=== PATIENT | male | born 1940 | race Caucasian/White ===

== ENCOUNTER 2019-02-09 10:17 | Observation (INO) | payer OTHER ==
[~2019-02-09] VITALS: Ht 182.9 cm; Wt 79.8 kg
[2019-02-09] VITALS (10 sets, daily range): BP systolic 110–176; BP diastolic 62–89
[~2019-02-09 10:17] MED LIST: ASPIRIN81 M2 PO; BRILINTA90 MG PO; CALCIUM + VIT1 EACH PO; COZAAR 50 MG TA50 M2 PO; CRESTOR20 MG PO; FISH OIL 1,001000 M2 PO; LAMICTAL100 MG PO; PAXIL10 MG PO; PLAVIX 75 MG TA75 M1 PO; TENORMIN50 MG PO; UNICOMPLEX M TA1 TA1 PO; XANAX 0.25 MG0.25 MG PO
[2019-02-09 11:10] LABS: HEMATOCRIT 38.2 % (42.0-52.0); HEMOGLOBIN 12.9 gm/dL (14.0-18.0); MCH 31.8 pg (26.0-34.0); MCHC 33.8 g/dL (28.0-37.0); MCV 94.1 fL (80.0-100.0); MPV 8.6 fl. (7.2-11.1); RBC 4.06 mil/uL (4.50-6.00); RDW-CV 13.4 % (10.5-14.5); WBC 6.3 thou/uL (4.0-11.0)
[2019-02-09 11:20] LABS: ANION GAP 2 mmol/L (7-16); APTT 23.7 Seconds (25.0-31.3); BUN 20 mg/dL (7-18); CHLORIDE 102 mmol/L (98-107); CO2 35 mmol/L (21-32); GLUCOSE 144 mg/dL (70-99); POTASSIUM 5.6 mmol/L (3.5-5.1); PROTIME 10.4 Seconds (9.20-11.50); SODIUM 139 mmol/L (136-145)
[2019-02-09 11:26] LABS: ALBUMIN 3.4 g/dL (3.4-5.0); ALKALINE PHOSPHATASE 84 U/L (46-116); CHOLESTEROL 126 mg/dL (<200); HDL CHOLESTEROL 54 mg/dL (>40); LDL CHOLESTEROL 51 mg/dL (<100); SGOT 45 U/L (15-37); SGPT 43 U/L (30-65); TC:HDL 2.3 Ratio (Not establshd); TOTAL BILIRUBIN 0.5 mg/dL (<0.1-1.0); TOTAL PROTEIN 6.9 g/dL (6.4-8.2); TRIGLYCERIDE 109 mg/dL (<150); VLDL 22 mg/dL (<40)
[2019-02-09] MEDS ORDERED: PLAVIX 75 MG TA75 MG PO (11:28)
[2019-02-09] MEDS ORDERED: LEXAPRO 10 MG T10 M2 PO (11:29)
[2019-02-09 11:58] LABS: SERUM ASSESSMENT Clear
--- NOTE | 2019-02-09 14:38 | EKG ---
[place] [address] ELECTROCARDIOGRAM REPORT Name: EMERYVINH Yashira NARANJO Room: [address] M.R.#: [id number] Admission: 02/09/19 Attend Phys: Jarrett Silva MD, Discharge: Date of : 36 Report #: [id number] THIS REPORT FOR: //name// [facility] Test Date: 2019-02-09 Test Time: 11:02:45 Pat Name: VINH LAND Department: Room: [facility] Gender: M Custodian: : 1940 Requested By: Jarrett Silva Order Number: [id number] Abigail MD: Jarrett Silva Measurements Intervals [place] Rate: 52 P: 23 ND: 233 QRS: -3 QRSD: 92 T: 24 QT: 433 QTc: 403 Interpretive Statements Sinus rhythm Prolonged [place] interval Compared to ECG 03/29/2017 01:08:58 T-wave abnormality no longer present Electronically Signed On 02-09-2019 14:38:25 CDT by Jarrett Silva [email or web address] <ELECTRONICALLY SIGNED> By: Jarrett Silva MD, [facility] 02/09/19 1438 01 01 Jarrett Silva MD, FAC /EPI
--- NOTE | 2019-02-09 14:40 | EKG ---
[place] [address] ELECTROCARDIOGRAM REPORT Name: VINH LAND JR Room: [address] M.R.#: [id number] Admission: 02/09/19 Attend Phys: Jarrett Silva MD, Discharge: Date of : 36 Report #: [id number] THIS REPORT FOR: //name// [facility] Test Date: 2019-02-09 Test Time: 14:15:34 Pat Name: VINH LAND Department: Room: [facility] Gender: M Petal Cutter: : 1940 Requested By: Jarrett Silva Order Number: [id number] Abigail MD: Jarrett Silva Measurements Intervals [place] Rate: 51 P: 29 [place]: 238 QRS: 0 QRSD: 93 T: 31 QT: 451 QTc: 416 Interpretive Statements Sinus rhythm Prolonged [place] interval Compared to ECG 03/29/2017 01:08:58 T-wave abnormality no longer present Electronically Signed On 02-09-2019 14:40:29 CDT by Jarrett Silva [email or web address] <ELECTRONICALLY SIGNED> By: Jarrett Silva MD, [facility] 02/09/19 1440 1415 1415 Jarrett Silva MD, FACC /EPI
[2019-02-09] MEDS ORDERED: ZETIA10 MG PO (18:53)
[2019-02-10] VITALS: BP 141/62
[2019-02-10 04:00] VITALS: BP 165/75
[2019-02-10 05:08] LABS: HEMATOCRIT 35.4 % (42.0-52.0); HEMOGLOBIN 12.1 gm/dL (14.0-18.0); MCH 31.9 pg (26.0-34.0); MCHC 34.1 g/dL (28.0-37.0); MCV 93.7 fL (80.0-100.0); MPV 8.1 fl. (7.2-11.1); RBC 3.78 mil/uL (4.50-6.00); RDW-CV 13.6 % (10.5-14.5); WBC 6.5 thou/uL (4.0-11.0)
[2019-02-10 06:13] LABS: ANION GAP 7 mmol/L (7-16); CHLORIDE 106 mmol/L (98-107); CO2 29 mmol/L (21-32); SODIUM 142 mmol/L (136-145)
[2019-02-10 06:57] LABS: ALBUMIN 3.2 g/dL (3.4-5.0); ALKALINE PHOSPHATASE 79 U/L (46-116); BUN 20 mg/dL (7-18); CALCIUM 8.5 mg/dL (8.5-10.1); CREATININE 1.1 mg/dL (0.6-1.3); GLUCOSE 144 mg/dL (70-99); POTASSIUM 4.3 mmol/L (3.5-5.1); SGOT 26 U/L (15-37); SGPT 40 U/L (30-65); TOTAL BILIRUBIN 0.3 mg/dL (<0.1-1.0); TOTAL PROTEIN 6.2 g/dL (6.4-8.2); TROPONIN-I LEVEL <0.06 ng/mL (<0.06)
--- NOTE | 2019-02-10 07:48 | NUR ---
PT CARE ASSUMED AT 1930. SAT MAINTAINED IN RA. ALERT AND ORIENTED X4. CALL LIGHT WITHIN REACH AND BED IN LOW POSITION. C/O CHEST PAIN, EKG DONE, MEDICTAION GIVEN PER EMAR AND PHYSICIAN NOTIFIED. HOURLY ROUNDING DONE FOR PT SAFETY.
[2019-02-10 08:00] VITALS: BP 167/76
[2019-02-10 08:56] VITALS: BP 167/76
--- NOTE | 2019-02-10 10:41 | CARD ---
[address] [address] CARDIAC CATH REPORT Name: VINH LAND JR Room: [address] Joyce#: [id number] Admission: 02/09/19 Attend Phys: Jarrett Silva MD, Discharge: Date of : 36 Report #: [id number] THIS REPORT FOR: //name// ADDENDUM APPROVED REPORT Study performed: 02/09/2019 11:57:29 Patient Details Patient Status: Out-Patient Room #: Event Personnel Dr. Silva, Food Prep Worker; Radha Adam RN rolling mill plugger; NABEEL Mccollum scrub; Naty Hernandez RTR monitor Procedures Performed Left heart catheterization left selective coronary artery with percutaneous coronary intervention to the first posterolateral branch of the circumflex. Right femoral artery access. Indication Unstable angina Risk Factors Hypercholesterolemia Previous Procedures/Diagnoses Previous PCI Admission/Lab Medications/Medications given during procedure Angiomax bolus12 mg and infusion 28.53 ml/hr. Aspirin 162 mg PO. Plavix 300 mg PO. Procedure Narrative The patient was brought electively to the Cardiac Catheterization Laboratory and was prepped and draped in a sterile manner. The right femoral was infiltrated with 2% Lidocaine subcutaneous anesthesia. A 6 Mozambican sheath was inserted into the right femoral artery. Coronary angiography was performed using coronary diagnostic catheters. The right coronary system was accessed and visualized with a Diagnostic 6f JL4 catheter. The left coronary system was accessed and visualized with a Diagnostic 6f JR4 catheter. The left ventricle was accessed and visualized with a Diagnostic catheter. Left ventricular/Aortic Valve gradient assessed via catheter pullback. Left ventriculogram was performed in SOTO projection. Pre-demployment femoral angiogram was performed . Closure device was deployed with a 6 [place] [address] CARDIAC CATH REPORT Name: VINH LAND JR Room: [address]#: [id number] Admission: 02/09/19 Attend Phys: Jarrett Silva MD, Discharge: Date of : 38 Report #: [id number] There was no hematoma. Intraoperative Conscious Sedation Sedation start time: 12:29 Case end Time: 13:15 Fentanyl 25.0 mcg Versed 2.0 mg Fluoro Time: 7.3 minutes Dose: DAP 24832 cGycm2 1482 mGy Contrast Type and Amount: 270 ml visipaque Diagnostic Cath Left Main 0% narrowing LAD 30 percent proximal and mid LAD narrowings with widely patent mid LAD stent Circumflex Nondominant circumflex with 80% stenosis of the proximal portion of the first posterolateral branch of the distal circumflex Right Coronary Large dominant vessel with 40% mid vessel and 30% distal narrowing Left Ventriculography The left ventricle is normal in size with normal contractility. The left ventricular ejection fraction is estimated to be 65%. Left ventricular wall motion abnormalities are not present. There is no mitral insufficiency. Hemodynamics The aortic pressure is 150/70 mmHg with a mean of 86 mmHg. The left ventricular end diastolic pressure is 10 mmHg. There was no gradient across the aortic valve upon pullback. PCI Technique Lesion Anticoagulation was achieved with Angiomax. Patient was preloaded with Angiomax 12 mg IV bolus. Percutaneous coronary intervention was performed on the first posterolateral branch of the circumflex. The lesion stenosis prior to intervention was 80% with JEREMIE 3 flow. A 6 Mozambican XB LAD 3.5 Guide Catheter was used to engage the left ostium. A 014 PWflex 180cm Interventional Guidewire was used to cross the lesion. STENT DEPLOYMENT A drug-eluting stent 2.0 x 8 mm [place] was inserted and inflated up to 10atm for 14seconds. Additional Inflation: 12atm for 7seconds. Final angiography reveals 0 % stenosis with JEREMIE 3 [place] [address] CARDIAC CATH REPORT Name: VINH LAND JR Room: [address]#: [id number] Admission: 02/09/19 Attend Phys: Jarrett Silva MD, Discharge: Date of : 38 Report #: [id number] flow. Conclusion #1 Coronary artery disease characterized by the following: A 30% proximal and mid LAD narrowing with widely patent mid LAD stent B 80% stenosis of the proximal portion of the first posterolateral branch of the circumflex C dominant right coronary artery with 40% mid and 30% distal narrowing #2 normal left ventricular systolic function, estimate ejection fraction 65% #3 normal left-sided hemodynamics study #4 successful percutaneous coronary intervention with deployment of drug-eluting stent at site of 80% stenosis in the first posterolateral branch of the circumflex with 0% residual narrowing Recommendations Cardiac Risk Reduction Program Aggressive Medical Therapy Medications Administered Aspirin (any) Clopidogrel Diagnostic Cath Approved by: Jarrett Silva MD Date/Time: 02/09/2019 15:43:59 <ELECTRONICALLY SIGNED> By: Jarrett Silva MD, [facility] 02/10/19 1041 1041 1041Jarrett Silva MD, FACC /INF
[2019-02-10] MEDS ORDERED: NITROSTAT0.4 M1 SUBLING (10:42)
[2019-02-10] MEDS ORDERED: IMDUR 30 MG TAB30 M1 PO (10:43)
--- NOTE | 2019-02-10 11:56 | D ---
[address] [address] DISCHARGE SUMMARY Name: EMERYVINH Ac Room: [address] [place] Cook#: [id number] Admission: 02/09/19 Attend Phys: Jarrett Silva MD, Discharge: 02/10/19 Date of : 36 Report #: [id number] THIS REPORT FOR: //name// CC: Jarrett Marshall DATE OF SERVICE: 02/10/2019 FINAL DISCHARGE DIAGNOSES: 1. Unstable angina. 2. Coronary artery disease. 3. Hyperlipidemia. 4. Hypertension. 5. Frequent premature ventricular contractions. 6. Status post percutaneous coronary intervention of the first posterolateral branch of the circumflex. PROCEDURES: 02/09/2019 ? left heart catheterization, left ventriculography, selective coronary arteriography and percutaneous coronary intervention with deployment of a single drug-eluting stent in the first posterolateral branch of the circumflex. HOSPITAL COURSE: The patient is a very pleasant and active 78-year-old male with complex coronary artery disease, status post multiple prior percutaneous coronary interventions. In the last several weeks, he has noted occasional episodes of chest discomfort and increased dyspnea on exertion. These occur particularly when he is playing handball and doing vigorous activities. He has also been noted to have frequent ectopy with periods of bigeminy during his cardiac rehabilitation sessions. In the context of known risk factors of hyperlipidemia and hypertension and the aforementioned clinical syndrome, I recommended repeat cardiac catheterization, which was undertaken on 02/09/2019. That revealed a 30% tandem proximal and mid LAD stenosis with a widely patent mid LAD stent, 80%-90% stenosis of the first posterolateral branch of the nondominant circumflex, and 50% mid right coronary narrowing with patent right coronary stents. Given this data, I placed one 2.0 x 8 mm Rj drug-eluting stent in the first posterolateral branch of the circumflex with 0% residual narrowing and JEREMIE 3 flow of the distal vessel. The patient did well post-procedurally and there was good hemostasis at the right femoral site of catheterization. I did note vasospasm during the procedure and nitrates were added to his longstanding regimen. He was continued [place] [address] DISCHARGE SUMMARY Name: VINH LAND JR Room: [address]#: [id number] Admission: 02/09/19 Attend Phys: Jarrett Silva MD, Discharge: 02/10/19 Date of : 38 Report #: [id number] The patient ambulated in the hallways without difficulty and there was good hemostasis at the right femoral site. DISCHARGE MEDICATIONS: He was discharged to home on the following medications: Aspirin 81 mg daily, atenolol 50 mg daily, calcium carbonate/vitamin D3 one tablet daily, clopidogrel 75 mg daily, fish oil 1000 mg daily, Lexapro 10 mg daily, Zetia 10 mg daily, Lamictal 200 mg daily, losartan 100 mg daily, multivitamins with mineral 1 tablet daily, Crestor 20 mg daily, p.r.n. sublingual nitroglycerin, and Imdur 30 mg daily. I will plan to see the patient in approximately 3 weeks in the office for his followup status post percutaneous coronary intervention of the circumflex. <ELECTRONICALLY SIGNED> By: Jarrett Silva MD, [facility] 02/10/19 1156 0954 1013John Jairo Silva MD, FAC /nt
--- NOTE | 2019-02-10 12:12 | NUR ---
ASSUMED PT CARE AT 0730, FULL ASSESMENT DONE CHARTED. PT A/O X4, UP AD SHAHLA, DENIES PAIN, RIGHT GROIN SOFT, NO HEMATOMA OR BLEEDING NOTED. PTS VSS, SB/1ST AVB/PVCS ON THE MONTITOR. DISCHARGE ORDERS RECEIVED, PT AND EDUCATED ON DISCHARGE INSTRUCTIONS AND NEW SCRIPTS. PT LEFT WITH WIFT AT APPROX 1100
--- NOTE | 2019-02-12 12:02 | EKG ---
[place] [address] ELECTROCARDIOGRAM REPORT Name: VINH LAND Room: [address]#: [id number] Admission: 02/09/19 Attend Phys: Jarrett Silva MD, Discharge: 02/10/19 Date of : 38 Report #: [id number] THIS REPORT FOR: //name// [facility] Test Date: 2019-02-09 Test Time: 21:47:41 Pat Name: VINH LAND Department: Room: [address] Gender: M Pro Shop Attendant: : 1940 Requested By: Jarrett Silva Order Number: [id number] Abigail MD: Jarrett Silva Measurements Intervals [place] Rate: 63 P: 57 VT: 204 QRS: 2 QRSD: 100 T: 39 QT: 430 QTc: 441 Interpretive Statements Sinus rhythm Ventricular trigeminy Low voltage, extremity leads Compared to ECG 02/09/2019 14:15:34 Ventricular premature complex(es) now present Low QRS voltage now present First degree AV block no longer present Electronically Signed On 02-12-2019 12:02:17 TRAVEL DIRECTOR by Jarrett Silva [email or web address] <ELECTRONICALLY SIGNED> By: Jarrett Silva MD, FAC 02/12/19 1202 2147 2147 Jarrett Silva MD, [facility] /EPI
--- NOTE | 2019-02-12 12:04 | EKG ---
[place] [address] ELECTROCARDIOGRAM REPORT Name: VINH LAND Room: [address]#: [id number] Admission: 02/09/19 Attend Phys: Jarrett Silva MD, Discharge: 02/10/19 Date of : 36 Report #: [id number] THIS REPORT FOR: //name// [facility] Test Date: 2019-02-10 Test Time: 09:24:36 Pat Name: VINH LAND Department: Room: [facility] Gender: Soils Engineer: 1887 : 1940 Requested By: Jarrett Silva Order Number: [id number] Abigail MD: Jarrett Silva Measurements Intervals [place] Rate: 60 P: 18 [place]: 226 QRS: -9 QRSD: 95 T: 33 QT: 439 QTc: 439 Interpretive Statements Sinus rhythm Prolonged [place] interval Inferior infarct, old Compared to ECG 02/09/2019 14:15:34 Myocardial infarct finding now present Electronically Signed On 02-12-2019 12:03:54 OPERATING ROOM SURGICAL TECHNICIAN by Jarrett Silva [email or web address] <ELECTRONICALLY SIGNED> By: Jarrett Silva MD, [facility] 02/12/19 1203 0924 Jarrett Silva MD, [facility] /EPI
== END 2019-02-10 11:07 | disposition home or self-care (01) ==
LOC: M.CL 10:17 → M.TBA-CV 13:25 → M.2W 14:41
PROVIDERS: ADMIT Internal Medicine
DX: I25.110 Atherosclerotic heart disease of native coronary artery with unstable angina pectoris (principal); E78.5 Hyperlipidemia, unspecified; E78.00 Pure hypercholesterolemia, unspecified; I10 Essential (primary) hypertension; Z79.82 Long term (current) use of aspirin; Z79.899 Other long term (current) drug therapy

== ENCOUNTER 2019-03-12 07:20 | Observation (INO) | payer OTHER ==
[2019-03-12] VITALS (19 sets, daily range): BP systolic 128–171; BP diastolic 61–82
[~2019-03-12] VITALS: Ht 182.9 cm; Wt 81.6 kg
--- NOTE | ~2019-03-12 | H ---
[address] [address] HISTORY AND PHYSICAL Name: VINH LAND JR Room: [address] [place] Cook#: [id number] Admission: 03/12/19 Attend Phys: Jarrett Silva MD, Discharge: 03/13/19 Date of : 36 Report #: [id number] THIS REPORT FOR: //name// Please refer to the History and Physical performed in the physician's office. By: 0639Medical Records Staff EVELYN /GINA
[~2019-03-12 07:20] MED LIST changes: +AMBIEN5 MG PO; +IMDUR 30 MG TAB30 M1 PO; +LEXAPRO 10 MG T10 M2 PO; +NITROSTAT0.4 M1 SUBLING; +PLAVIX 75 MG TA75 MG PO; +ZETIA10 MG PO
[2019-03-12 09:02] LABS: HEMATOCRIT 38.5 % (42.0-52.0); HEMOGLOBIN 13.1 gm/dL (14.0-18.0); MCH 31.7 pg (26.0-34.0); MCHC 33.9 g/dL (28.0-37.0); MCV 93.6 fL (80.0-100.0); MPV 8.2 fl. (7.2-11.1); RBC 4.11 mil/uL (4.50-6.00); RDW-CV 13.5 % (10.5-14.5); WBC 6.4 thou/uL (4.0-11.0)
[2019-03-12 09:09] LABS: APTT 24.7 Seconds (25.0-31.3); PROTIME 10.6 Seconds (9.20-11.50)
[2019-03-12 09:25] LABS: ANION GAP 6 mmol/L (7-16); BUN 18 mg/dL (7-18); CALCIUM 8.8 mg/dL (8.5-10.1); CHLORIDE 103 mmol/L (98-107); CO2 32 mmol/L (21-32); CREATININE 1.3 mg/dL (0.6-1.3); GLUCOSE 180 mg/dL (70-99); POTASSIUM 4.1 mmol/L (3.5-5.1); SODIUM 141 mmol/L (136-145)
[2019-03-12 09:38] LABS: ALBUMIN 3.7 g/dL (3.4-5.0); ALKALINE PHOSPHATASE 81 U/L (46-116); CHOLESTEROL 120 mg/dL (<200); HDL CHOLESTEROL 47 mg/dL (>40); LDL CHOLESTEROL 53 mg/dL (<100); SERUM ASSESSMENT Clear; SGOT 25 U/L (15-37); SGPT 37 U/L (30-65); TC:HDL 2.6 Ratio (Not establshd); TOTAL BILIRUBIN 0.4 mg/dL (<0.1-1.0); TOTAL PROTEIN 7.2 g/dL (6.4-8.2); TRIGLYCERIDE 101 mg/dL (<150); VLDL 20 mg/dL (<40)
--- NOTE | 2019-03-12 12:30 | NUR ---
PT ARRIVED TO UNIT AT APPROX 1210, PT A&O X4, VSS, RA, CATH SITE TO RIGHT GROIN, DRESSING TO SITE CLEAN, DRY, AND INTACT, FIXED WING AIRCRAFT CREW CHIEF TRACING SINUS RHYTHM WITH MULTIPLE PVC'S, FULL ASSESSMENT CHARTED. PT COMPLETED POST CATH PROCEDURES, AMBULATING AD SHAHLA WITH STEADY GAIT, ALL VS CHARTED DIRECTED, HOURLY ROUNDING COMPLETED.
[2019-03-13 03:40] VITALS: BP 141/63
[2019-03-13 06:06] LABS: HEMATOCRIT 37.3 % (42.0-52.0); HEMOGLOBIN 12.6 gm/dL (14.0-18.0); MCH 31.6 pg (26.0-34.0); MCHC 33.9 g/dL (28.0-37.0); MCV 93.2 fL (80.0-100.0); MPV 8.4 fl. (7.2-11.1); RDW-CV 13.2 % (10.5-14.5); WBC 5.4 thou/uL (4.0-11.0)
[2019-03-13 06:35] LABS: ALBUMIN 3.4 g/dL (3.4-5.0); CALCIUM 8.7 mg/dL (8.5-10.1); POTASSIUM 4.1 mmol/L (3.5-5.1); TOTAL BILIRUBIN 0.5 mg/dL (<0.1-1.0); TOTAL PROTEIN 6.5 g/dL (6.4-8.2); TROPONIN-I LEVEL 0.21 ng/mL (<0.06)
[2019-03-13 07:15] VITALS: BP 147/64
--- NOTE | 2019-03-13 08:10 | NUR ---
ASSUMED PATIENT CARE AT 1900. ASSESSMENT COMPLETED CHARTED. PATIENT IS SB/1D ON THE MONITOR. HOURLY ROUNDING IN PLACE FOR PATIENT SAFETY. CLWR.
--- NOTE | 2019-03-13 10:54 | EKG ---
[place] [address] ELECTROCARDIOGRAM REPORT Name: VINH LAND JR Room: [address] M.R.#: [id number] Admission: 03/12/19 Attend Phys: Jarrett Silva MD, Discharge: Date of : 38 Report #: [id number] THIS REPORT FOR: //name// [facility] Test Date: 2019-03-12 Test Time: 08:22:03 Pat Name: VINH LAND Department: Room: [facility] Gender: M Client Support Coordinator: [facility] : 1940 Requested By: Jarrett Silva Order Number: [id number] Abigail MD: Blaine Potter Measurements Intervals [place] Rate: 52 P: 20 [place]: 218 QRS: -7 QRSD: 97 T: 19 QT: 441 QTc: 411 Interpretive Statements Sinus rhythm prolonged [place] interval Inferior infarct, old, possible Compared to ECG 02/10/2019 09:24:36 No significant changes noted Electronically Signed On 03-13-2019 10:53:58 COMMUNITY HEALTH SPECIALIST by Blaine Potter [email or web address] <ELECTRONICALLY SIGNED> By: Blaine Potter MD, [facility] 03/13/19 1053 1 1 Blaine Potter MD, [facility] /EPI
--- NOTE | 2019-03-13 10:56 | EKG ---
[place] [address] ELECTROCARDIOGRAM REPORT Name: VINH LAND JR Room: [address] M.R.#: [id number] Admission: 03/12/19 Attend Phys: Jarrett Silva MD, Discharge: Date of : 36 Report #: [id number] THIS REPORT FOR: //name// Test Date: 2019-03-12 Test Time: 11:34:26 Pat Name: VINH LAND Department: Room: [facility] Gender: M Chief Business Officer: : 1940 Requested By: Jarrett Silva Order Number: [id number] Abigail MD: Blaine Potter Measurements Intervals [place] Rate: 54 P: 16 [place]: 220 QRS: -7 QRSD: 90 T: 29 QT: 438 QTc: 416 Interpretive Statements Sinus rhythm Ventricular trigeminy Prolonged [place] interval Compared to ECG 02/10/2019 09:24:36 Ventricular premature complex(es) now present Myocardial infarct finding no longer present Electronically Signed On 03-13-2019 10:56:38 INSPECTOR WEIGHTS AND MEASURES by Blaine Potter [email or web address] <ELECTRONICALLY SIGNED> By: Blaine Potter MD, FACC 03/13/19 1056 1134 1134 Blaine Potter MD, FAC /EPI
--- NOTE | 2019-03-13 11:04 | EKG ---
[place] [address] ELECTROCARDIOGRAM REPORT Name: VINH LAND JR Room: [address] M.R.#: [id number] Admission: 03/12/19 Attend Phys: Jarrett Silva MD, Discharge: Date of : 36 Report #: [id number] THIS REPORT FOR: //name// [facility] Test Date: 2019-03-13 Test Time: 04:08:53 Pat Name: VINH LAND Department: Room: [facility] Gender: M Ophthalmic Medical Technician: [place] : 1940 Requested By: Jarrett Silva Order Number: [id number] Abigail MD: Blaine Potter Measurements Intervals [place] Rate: 55 P: 12 [place]: 223 QRS: -6 QRSD: 97 T: 27 QT: 435 QTc: 416 Interpretive Statements Sinus rhythm Prolonged [place] interval Inferior infarct, old Compared to ECG 02/10/2019 09:24:36 No significant changes Electronically Signed On 03-13-2019 11:03:54 CLINICAL SUPPORT TECH by Blaine Potter [email or web address] <ELECTRONICALLY SIGNED> By: Blaine Potter MD, [facility] 03/13/19 1103 0408 0408 Blaine Potter MD, FACC /EPI
[2019-03-13 12:25] VITALS: BP 154/79
[2019-03-13] MEDS ORDERED: LIPITOR10 MG PO (12:35)
--- NOTE | 2019-03-13 13:06 | NUR ---
ASSUMED PT CARE AT 0700, PT A&O X4, VSS, RA, TRACK LAYING MACHINE OPERATOR TRACING SINUS CHANEL WITH FIRST DEGREE AV BLOCK AND PVC'S, FULL ASSESSMENT CHARTED. CATH SITE TO RIGHT GROIN SOFT WITH NO S/S HEMATOMA, DRESSING CLEAN, DRY, AND INTACT. PT DISCHARGED AT APPROX 1300, EDUCATED ON ALL DISCHARGE INSTRUCTIONS INCLUDING MEDICATIONS AND FOLLOW UP APPOINTMENTS. HOURLY ROUNDING COMPLETED, IV AND TRACK LAYING MACHINE OPERATOR REMOVED.
--- NOTE | 2019-03-13 15:00 | D ---
[address] [address] DISCHARGE SUMMARY Name: EMERYVINH Ac Room: [address] [place] M.REmily#: [id number] Admission: 03/12/19 Attend Phys: Jarrett Silva MD, Discharge: 03/13/19 Date of : 36 Report #: [id number] THIS REPORT FOR: //name// CC: Jarrett Marshall DATE OF SERVICE: 03/13/2019 FINAL DISCHARGE DIAGNOSES: 1. Unstable angina. 2. Coronary artery disease. 3. Status post prior percutaneous coronary intervention of the left anterior descending and circumflex with percutaneous coronary intervention of the right coronary artery on 03/12/2019. 4. Hyperlipidemia. 5. Hypertension. PROCEDURES: 03/12/2019 -- left heart catheterization, selective coronary arteriography and percutaneous coronary intervention with deployment of 2 drug-eluting stents at the sites of 80% and 70% mid and distal right coronary stenosis. HOSPITAL COURSE: The patient is a very pleasant 78-year-old male with complex coronary artery disease status post prior stenting of the LAD and more recent stenting of the circumflex. Subsequent to the latter procedure, he continued to experience dyspnea on exertion, mild chest discomfort and palpitations. Recent nuclear stress test revealed inducible inferior ischemia. I had noted a moderate right coronary lesion, but felt that not to be hemodynamically significant by angiographic assessment. Scintigraphic evaluation suggested that it was hemodynamically significant. In this context, I performed recatheterization, which revealed widely patent LAD and circumflex stents with tandem 75-80 and 70% mid and distal right coronary stenosis. I deployed a 3.5 x 12 mm drug-eluting stent in the mid right coronary artery and a 3.25 x 12 mm drug-eluting stent in the distal right coronary artery with a 10 and 0% residual narrowing following stent deployment, JEREMIE 3 flow of the distal vessel. Troponin allan minimally and inconsequentially to 0.21. Additional labs revealed sodium of 141, potassium 4.1, BUN 15, creatinine 1.0. Hemoglobin 12.6, white blood cell count 5400 with 185,000 platelets. DISCHARGE MEDICATIONS: The patient was discharged to home on the following medications: Aspirin 81 mg daily, atenolol 50 mg daily, calcium carbonate, vitamin D3 one tablet daily, Plavix 75 mg daily with a 600 mg kenny-procedural dose, fish oil 1000 mg daily, Lexapro 10 mg daily, Zetia 10 mg daily, lamotrigine or Lamictal 200 mg daily, losartan 100 mg daily, multivitamin with iron 1 tablet daily, rosuvastatin 20 mg daily and zolpidem 5 [place] [address] DISCHARGE SUMMARY Name: VINH LAND JR Room: [address] [place] Cook#: [id number] Admission: 03/12/19 Attend Phys: Jarrett Silva MD, Discharge: 03/13/19 Date of : 36 Report #: [id number] The patient is scheduled to return to see me on 04/02/2019 at 1300 at [facility]. Therefore, the patient is discharged to home in stable condition on the aforementioned medications with followup as iterated above. <ELECTRONICALLY SIGNED> By: Jarrett Silva MD, FACC 03/13/19 1500 0947 1004Jomilagros Silva MD, FACC /nt
--- NOTE | 2019-03-13 16:05 | CARD ---
[address] [address] CARDIAC CATH REPORT Name: VINH LAND JR Room: [address] [place]#: [id number] Admission: 03/12/19 Attend Phys: Jarrett Silva MD, Discharge: 03/13/19 Date of : 36 Report #: [id number] THIS REPORT FOR: //name// APPROVED REPORT Study performed: 03/12/2019 09:06:44 Patient Details The patient is a 78 year-old male Event Personnel Britt Vargas Holkins, John Station Repairer, Joel Markham RTR Scrub, Joel Markham RTR Scrub, Timbo Marin ASSISTANT PROFESSOR OF NURSING Monitor Procedures Performed Art Access - R femoral artery* Left Heart Cath w/or w/o Coronaries 1896002 [facility] Place w/wo Plasty Single RCA 118284 Indication Unstable angina Risk Factors Hypercholesterolemia Previous Procedures/Diagnoses Previous PCI Admission/Lab Medications/Medications given during procedure Angiomax bolus and infusion Procedure Narrative The patient was brought electively to the Cardiac Catheterization Laboratory and was prepped and draped in a sterile manner. The right femoral was infiltrated with 2% Lidocaine subcutaneous anesthesia. A [place] 6 FR sheath was inserted into the RFA. Coronary angiography was performed using coronary diagnostic catheters. The right coronary system was accessed and visualized with a JR4 catheter. The left coronary system was accessed and visualized with a JL4 catheter. The left ventricle was accessed and visualized with a PIG catheter. Left ventricular/Aortic Valve gradient assessed via catheter pullback. Pre-demployment femoral angiogram was performed . Closure device was deployed with a Fr Angioseal. [place] [id number] CARDIAC CATH REPORT Name: EMERYVINH Yashira NARANJO Room: [address] MCarmella#: [id number] Admission: 03/12/19 Attend Phys: Jarrett Silva MD, Discharge: 03/13/19 Date of : 36 Report #: [id number] Intraoperative Conscious Sedation Fentanyl 75 mcg Dose: 1551 mGy Contrast Type and Amount: Visipaque 130 ml Coronary Angiography The patient's coronary anatomy is right dominant. Diagnostic Cath Left Main 0% narrowing LAD 30% proximal LAD narrowing with widely patent proximalmid LAD stent Circumflex 0% narrowing with widely patent stent in the first posterolateral branch of the nondominant circumflex Right Coronary 80% focal mid vessel narrowing and 70% focal distal narrowing Left Ventriculography Left Ventriculography was not performed. IVUS Anticoagulation was achieved with . Angiomax Hemodynamics The aortic pressure is 131/47 mmHg with a mean of 68 mmHg. The left ventricular pressure is 159/-5 mmHg with a mean of mmHg. The left ventricular end diastolic pressure is 15 mmHg. There was no gradient across the aortic valve upon pullback. PCI Technique Lesion Anticoagulation was achieved with Angiomax. Percutaneous coronary intervention was performed on the distal right coronary artery. The lesion stenosis prior to intervention was 80% with JEREMIE flow. A 6F JR 4.0 Guide Catheter was used to engage the Right ostium. A IG: BMW 190cm Interventional Guidewire was used to cross the lesion. BALLOON DILATION A Balloon catheter NC Trek RX 3.0 X 12 was inserted and inflated up to 18.00atm for 11seconds. Additional Inflation: 22.00atm for 11seconds. STENT DEPLOYMENT A drug-eluting stent Xience Iwona 3.58C28nv was inserted and inflated up to 15.00atm for 11seconds. Additional Inflation: 20.00atm for 12seconds. [place] [id number] CARDIAC CATH REPORT Name: VINH LAND JR Room: [address]#: [id number] Admission: 03/12/19 Attend Phys: Jarrett Silva MD, Discharge: 03/13/19 Date of : 36 Report #: [id number] Final angiography reveals 0 % stenosis with JEREMIE 3 flow. PCI Technique Lesion Anticoagulation was achieved with Angiomax. STENT DEPLOYMENT A drug-eluting stent Xience Iwona 3.5X12mm was inserted and inflated up to 16.00atm for 12seconds. Additional Inflation: 22.00atm for 12seconds. POST STENT DEPLOYMENT BALLOON DILATION A Balloon catheter NC Trek RX 4X8 was inserted and inflated up to 15atm for 10seconds. Final angiography reveals 10 % stenosis with JEREMIE 3 flow. Conclusion #1 significant coronary artery disease characterized by the following: A 80% focal mid with 70% focal distal right coronary stenosis, this being a dominant vessel B 30% proximal LAD narrowing with widely patent proximalmid LAD stent C nondominant circumflex with 0% narrowing and a widely patent first posterolateral branch stent #2 mild elevation of left ventricular end-diastolic pressure at rest #3 successful percutaneous coronary intervention with deployment of sequential drug-eluting stents at the sites of 80% mid and 70% distal right coronary stenosis with 10 and 0% residual narrowings and JEREMIE-3 flow the distal vessel Recommendations Cardiac Risk Reduction Program Aggressive Medical Therapy Medications Administered Aspirin (any) [place] [id number] CARDIAC CATH REPORT Name: VINH LAND JR Room: [address]#: [id number] Admission: 03/12/19 Attend Phys: Jarrett Silva MD, Discharge: 03/13/19 Date of : 36 Report #: [id number] Diagnostic Cath Approved by: Jarrett Silva MD Date/Time: 03/13/2019 16:00:49 <ELECTRONICALLY SIGNED> By: Jarrett Silva MD, [facility] 03/13/19 160 160 160Jarrett Silva MD, [facility]
== END 2019-03-13 12:59 | disposition home or self-care (01) ==
LOC: M.CL 07:20 → M.2W 11:13 → M.TBA-CV 11:13 → M.2W 12:08
PROVIDERS: ADMIT Internal Medicine
DX: I25.110 Atherosclerotic heart disease of native coronary artery with unstable angina pectoris (principal); I10 Essential (primary) hypertension; E78.5 Hyperlipidemia, unspecified